=== PATIENT | female | born 1995 | race Caucasian/White ===

== ENCOUNTER 2018-10-30 13:12 | Emergency (ER) | payer MEDICAID, OTHER ==
--- NOTE | 2018-10-30 14:27 | EDM.PDOC ---
ED HPI GENERAL MEDICAL PROBLEM - General Chief Complaint: General Stated Complaint: Bodyaches and Fever Time Seen by Provider: 10/30/18 13:45 Source of Information: Reports: Patient, RN History Limitations: Reports: No Limitations - History of Present Illness INITIAL COMMENTS - FREE TEXT/NARRATIVE: 23 yr female presents to ER with temperature and possible mastitis. She notes she has been her baby and pumping about 20 oz of breast milk and is still noting some increase in swelling to right breast. States she thinks she passed out with breast pumping today, but then awoke and called into the clinic and was instructed to come into the ER. Pt is lying on cot and in no apparent distress. - Related Data Allergies Allergy/AdvReac Type Severity Reaction Status Date / Time cefaclor [From Ceclor] Allergy unknown Verified 10/30/18 13:32 cefprozil [From Cefzil] Allergy unknown Verified 10/30/18 13:32 Home Meds: Home Meds Amoxicillin 500 mg PO TID 7 Days #21 capsule 10/30/18 [Rx] ED ROS GENERAL - Review of Systems Review Of Systems: See Below Constitutional: Reports: Fever, Weakness HEENT: Reports: No Symptoms Respiratory: Reports: No Symptoms Cardiovascular: Reports: No Symptoms Endocrine: Reports: No Symptoms GI/Abdominal: Reports: No Symptoms : Reports: Other (States no increase in vaginal bleeding noted.) Musculoskeletal: Reports: No Symptoms Skin: Reports: Other (increased milk production and hard lumpy breast.) Neurological: Reports: No Symptoms Psychiatric: Reports: No Symptoms Hematologic/Lymphatic: Reports: No Symptoms Immunologic: Reports: No Symptoms ED EXAM, GENERAL - Physical Exam Exam: See Below Exam Limited By: No Limitations General Appearance: Alert, No Apparent Distress Ears: Hearing Grossly Normal Nose: Normal Inspection Throat/Mouth: Normal Inspection, Normal Lips, Normal Voice, No Airway Compromise Head: Atraumatic, Normocephalic Neck: Normal Inspection, Supple Respiratory/Chest: No Respiratory Distress, Lungs Clear, Normal Breath Sounds Cardiovascular: Regular Rate, Rhythm, No Edema GI/Abdominal: Soft, Non-Tender (Female) Exam: Deferred Rectal (Female) Exam: Deferred Back Exam: Normal Inspection Extremities: Normal Inspection, Normal Range of Motion, Non-Tender Neurological: Alert, Oriented, Normal Cognition Psychiatric: Normal Affect, Normal Mood Skin Exam: Warm, Dry, Normal Color, Other (Mild swelling and hard lumpy outer aspect of breast and no erythema noted.) Lymphatic: No Adenopathy Course - Vital Signs Last Recorded V/S: Last Vital Signs Temp 100.7 F H 10/30/18 13:19 Pulse 110 H 10/30/18 13:19 Resp 18 10/30/18 13:19 BP 110/65 10/30/18 13:19 Pulse Ox 98 10/30/18 13:19 - Orders/Labs/Meds Labs: Laboratory Tests 10/30/18 10/30/18 Range/Units 14:15 14:15 WBC 9.8 (4.0-11.0) K/uL RBC 4.04 (3.80-5.80) M/uL Hgb 12.7 (11.5-16.5) g/dL Hct 37.8 (37.0-47.0) % MCV 94 (76-96) fL MCH 31.4 (27.0-32.0) pg MCHC 33.6 (31.0-35.0) g/dL RDW 11.9 (11.0-16.0) % Plt Count 237 (150-500) K/uL MPV 8.9 (6.0-10.0) fL Neut % (Auto) 78.9 H (45.0-70.0) % Lymph % (Auto) 12.8 L (20.0-40.0) % [place] % (Auto) 5.7 (3.0-10.0) % Eos % (Auto) 2.4 (1.0-5.0) % Baso % (Auto) 0.2 (0.0-0.5) % Neut # (Auto) 7.75 H (2.00-7.50) K/uL Lymph # (Auto) 1.26 L (1.50-4.00) K/uL [place] # (Auto) 0.56 (0.20-0.80) K/uL Eos # (Auto) 0.24 (0.04-0.40) K/uL Baso # (Auto) 0.02 (0.02-0.10) K/uL Urine Color Yellow Urine Appearance Clear (CLEAR) Urine pH 7.5 (5.0-8.0) Ur Specific [place] 1.020 (1.003-1.030) Urine Protein Negative (NEGATIVE) mg/dL Urine Glucose (UA) Negative (NEGATIVE) mg/dL Urine Ketones Negative (NEGATIVE) mg/dL Urine Occult Blood Trace-intact H (NEGATIVE) Urine Nitrite Negative (NEGATIVE) Urine Bilirubin Negative (NEGATIVE) Urine Urobilinogen 0.2 (0.2-1.0) E.U./dL Ur Leukocyte Esterase Trace H (NEGATIVE) Urine RBC 0-5 H /HPF Urine WBC 5-10 H /HPF Ur Squamous Epith Cells Few /HPF Urine Bacteria Few /HPF Meds: Medications Discontinued Medications Generic Name Dose Route Start Last Admin Trade Name Vick PRN Reason Stop Dose Admin Acetaminophen 650 mg 10/30/18 14:31 10/30/18 14:35 Tylenol PO 10/30/18 14:32 650 mg NOW ONE Administration Acetaminophen Confirm 10/30/18 14:40 10/30/18 14:36 Tylenol Administered 10/30/18 14:41 Not Given Dose 650 mg .ROUTE .STK-MED ONE - Re-Assessments/Exams Free Text/Narrative Re-Assessment/Exam: 10/30/18 18:08 LE CBC w diff and U/A ordered. Reviewed lab results with pt and UTI noted. Will treat for start of mastitis and UTI with Amoxicillin 500 mg po tid. She may continue with breast feeding, I did notify pt that may get some loose stool with antibiotic. Recommend to empty out breast with breast feeding and with use of breast pump. May use Tylenol as needed and rest and hydration. May try gentle massage of breast and warm pack to breast to aide in emptying out milk ducts. Discharge to home with Rx for Amoxicillin. RTC if symptoms persist or worsen. Follow-up with primary care provider Departure - Departure Time of Disposition: 15:20 Disposition: Home, Self-Care 01 Condition: Good Clinical Impression: UTI (urinary tract infection), Mastitis - Discharge Information *PRESCRIPTION DRUG MONITORING PROGRAM REVIEWED*: Not Applicable *COPY OF PRESCRIPTION DRUG MONITORING REPORT IN PATIENT ASHLEY: Not Applicable Prescriptions: Amoxicillin 500 mg PO TID 7 Days #21 capsule Instructions: Mastitis, [id number], Urinary Tract Infection, Adult, Easy-to- Read, Breast Engorgement Referrals: PCP,None [Primary Care Provider] - Forms: ED Department Discharge Additional Instructions: - May take Tylenol 650 mg every 4-6 hours if needed for fever and pain. - Take Amoxicillin 500 mg every 8 hours for 7 days. - Drink more water. - May come back to the ER anytime for worsening of symptoms. - Assessment/Plan Plan: Will treat for start of mastitis and UTI with Amoxicillin 500 mg po tid. She may continue with breast feeding, I did notify pt that infant may get some loose stool with antibiotic. Recommend to empty out breast with breast feeding and with use of breast pump. May use Tylenol as needed and rest and hydration. May try gentle massage of breast and warm pack to breast to aide in emptying out milk ducts. Discharge to home with Rx for Amoxicillin. RTC if symptoms persist or worsen. Follow-up with primary care provider
[2018-10-30] MEDS: Acetaminophen 325 MG Tab PO ONE (14:35)
[2018-10-30] MEDS: Acetaminophen 325 MG Tab ONE (14:36)
== END 2018-10-30 15:46 | disposition home or self-care (01) ==
LOC: LB.ED 13:12
DX: N61.0 Mastitis without abscess (principal); N39.0 Urinary tract infection, site not specified
CPT/HCPCS: 36415; 81001; 85025; 99283; A9270-GY

== ENCOUNTER 2025-07-04 17:25 | Emergency (ER) | payer BC | END 2025-07-04 18:44 | disposition home or self-care (01) | LOC: LB.ED 17:25 | DX: S62.002A Unspecified fracture of navicular [scaphoid] bone of left wrist, initial encounter for closed fracture (principal); S70.312A Abrasion, left thigh, initial encounter; Z88.8 Allergy status to other drugs, medicaments and biological substances; Z79.899 Other long term (current) drug therapy; X58.XXXA Exposure to other specified factors, initial encounter | CPT/HCPCS: 73080-LT; 73110-LT; 99283 ==